=== PATIENT | female | born 1945 | race Caucasian/White ===

== ENCOUNTER → 2016-11-16 | Outpatient (CLI) | payer MEDICARE, OTHER ==
--- NOTE | 2016-11-16 12:36 | RAD ---
Bone densitometry scan, 11/16/2016: History: Fracture, osteoporosis screening, postmenopausal The lumbar spine and right hip were examined utilizing a DEXA technique. The bone mineral density in the lumbar spine as measured from the L1-L4 levels is 1.06 g/sq cm. This shows a T score of -1.0 which is at the lower limits of the normal range. The lumbar spine T score the previous study of 02/15/2014 was -1.6. The total T score at the right hip is -1.2, compatible with osteopenia. On the previous study the right hip total T score was -0.7. IMPRESSION: 1. Improved bone mineral density in the lumbar spine which is now at the lower limits of normal. 2. Osteopenia at the right hip which has worsened since the previous study.
== END | disposition home or self-care (01) ==
LOC: DXRAD 09:38
PROVIDERS: ATTEND Nurse Practitioner Family
DX: Z13.820 Encounter for screening for osteoporosis (principal); M85.80 Other specified disorders of bone density and structure, unspecified site; Z78.0 Asymptomatic menopausal state
CPT/HCPCS: 77080

== ENCOUNTER → 2017-11-11 | Outpatient (CLI) | payer MEDICARE, OTHER ==
--- NOTE | 2017-11-11 13:26 | RAD ---
DATE: 11/11/2017 EXAM: MAMMO PANKAJ SCREENING BILATERAL HISTORY: Routine screening COMPARISON: None available This study was interpreted with the benefit of Computerized Aided Detection (CAD). The breast parenchyma is dense, which could reduce the sensitivity of mammography. Breast parenchyma level density D. FINDINGS: 2-D and 3-D tomosynthesis imaging was performed in CC and MLO projections. The breast tissue centrally in both breasts are quite dense and heterogeneous in a somewhat nodular pattern. There is mild architectural distortion laterally in the left breast, probably related to the patient's previous breast surgeries. There is a discrete 6 mm nodule in the medial aspect of the right breast at approximately the 2:00 location, best seen on CC pankaj image #34. Scattered benign type calcifications are present. No suspicious microcalcifications are evident. IMPRESSION: 1. Dense breasts. 2. Medial right breast nodule. 3. Mild architectural distortion laterally in the left breast, likely postsurgical. 4. Bilateral breast ultrasound is suggested for further evaluation. BI-RADS CATEGORY: 0 INCOMPLETE: NEEDS ADDITIONAL IMAGING EVALUATION AND/OR PRIOR MAMMOGRAMS FOR COMPARISON. RECOMMENDED FOLLOW-UP: ADD ADDITIONAL IMAGING PQRS compliance statement: Patient information was entered into a reminder system with a target due date for the next mammogram. Mammography is a sensitive method for finding small breast cancers, but it does not detect them all and is not a substitute for careful clinical examination. A negative mammogram does not negate a clinically suspicious finding and should not result in delay in biopsying a clinically suspicious abnormality. "Our facility is accredited by the [employer] Mammography Program."
== END | disposition home or self-care (01) ==
LOC: MAMMO 10:54
PROVIDERS: ATTEND Nurse Practitioner Family
DX: Z12.31 Encounter for screening mammogram for malignant neoplasm of breast (principal); N63.11 Unspecified lump in the right breast, upper outer quadrant
CPT/HCPCS: 77063; 77067

== ENCOUNTER → 2017-11-16 | Outpatient (CLI) | payer MEDICARE, OTHER ==
--- NOTE | 2017-11-16 14:36 | RAD ---
Bilateral breast ultrasound, 11/16/2017: History: Abnormal mammograms A targeted ultrasound exam of the right breast was performed at the 2:00 location where a small nodule was seen on recent mammograms. Approximately 4 cm from the nipple at the 2:00 location there is a 5 mm rounded hypoechoic nodule. Its margins are smooth. No significant posterior acoustic enhancement or shadowing is seen. No vascularity was evident within this nodule. It is probably a complicated cyst. A hypovascular solid nodule cannot be entirely excluded. The lateral aspect of the left breast was also scanned in the area where mild architectural distortion was described on the recent mammograms. Normal heterogeneous fibroglandular shadows are present. No mass is identified. IMPRESSION: 1. Probably benign nodule at the 2:00 location in the right breast. 2. No sonographic abnormality in the lateral aspect of left breast. The left breast changes seen on the mammograms are probably postsurgical. 3. Follow-up right breast ultrasound and bilateral mammography in 6 months is suggested. BI-RADS 3-probably benign findings
== END | disposition home or self-care (01) ==
LOC: US 13:50
PROVIDERS: ATTEND Nurse Practitioner Family
DX: R92.8 Other abnormal and inconclusive findings on diagnostic imaging of breast (principal)
CPT/HCPCS: 76641

== ENCOUNTER → 2017-11-18 | Outpatient (CLI) | payer MEDICARE, OTHER ==
--- NOTE | 2017-11-18 11:59 | RAD ---
Cervical spine, 3 views, 11/18/2017: HISTORY: Neck pain The cervical vertebral heights are well-maintained. There is moderate disc space narrowing and marginal spurring at C5-6. The other cervical disc spaces are fairly well-maintained. There is moderate facet joint arthropathy bilaterally at multiple levels. No fracture or dislocation is identified. The prevertebral soft tissues are unremarkable. IMPRESSION: 1. Moderate multilevel degenerative change as described above. 2. No acute bony abnormality is detected. Electronically signed by: José Chiu MD (11/18/2017 11:56 AM) [facility]
== END | disposition home or self-care (01) ==
LOC: PMG 11:20
PROVIDERS: ATTEND Nurse Practitioner Family
DX: M48.02 Spinal stenosis, cervical region (principal)
CPT/HCPCS: 72040

== ENCOUNTER → 2018-11-21 | Outpatient (CLI) | payer MEDICARE, OTHER ==
--- NOTE | 2018-11-21 13:12 | RAD ---
Bone densitometry scan, 11/21/2018: HISTORY: Osteopenia The lumbar spine and right hip were examined utilizing a DEXA technique. The bone mineral density in the lumbar spine as measured from the L1-L4 levels is 1.09 g/sq cm. This yields a T score of -0.7 which is in the normal range. This has improved since 11/16/2016 at which time the lumbar T score was -1.0. The total T score at the right hip is -1.0 which is at the lower limits of normal. On the previous study the total right hip T score was -1.2. IMPRESSION: The bone mineral density scores have improved slightly since 11/16/2016 and are now in the normal range. Electronically signed by: José Chiu MD (11/21/2018 1:09 PM) [facility]
== END | disposition home or self-care (01) ==
LOC: DXRAD 09:58
PROVIDERS: ATTEND Registered Nurse
DX: M85.88 Other specified disorders of bone density and structure, other site (principal)
CPT/HCPCS: 77080